=== PATIENT | male | born 1960 | race Two or more races ===

== ENCOUNTER 2024-08-01 04:18 | Inpatient (IN) | payer OTHER ==
[~2024-08-01] VITALS: Ht 167.6 cm; Wt 84.0 kg
--- NOTE | 2024-08-01 04:58 | ED.PDOC ---
History of Present Illness HPI Comments 64-year-old male who came to ER due to dizziness. Patient has a history of diabetes. States for the past 3 hours, he has been having episodes of dizziness, felt like the room was spinning. Associated with nausea, vomiting, abdominal pain, right-sided tinnitus. Patient states dizziness worsens with head movements. Chief Complaint: Dizziness Time Seen by MD: 04:58 Reviewed Notes: Nurses Notes Allergies: Coded Allergies: No Known Drug Allergy (Verified Allergy, Unknown, 08/01/24) Information Source: Patient Mode of Arrival: Wheelchair Severity: Moderate Timing: Hours Duration: Since onset Past Medical History PAST MEDICAL HISTORY: DM Surgical History: Denies all surgeries Family History Family History: Reviewed,noncontributory to illness Social History Smoker: Non-Smoker Alcohol: Denies ETOH Use Drugs: Denies Drug Use Lives In: Home Constitutional: denies: chills, diaphoresis, fatigue, fever, malaise, sweats, weakness, others EENTM: reports: ear ringing (right); denies: blurred vision, double vision, ear bleeding, ear discharge, ear drainage, ear pain, eye pain, eye redness, hearing loss, mouth pain, mouth swelling, nasal discharge, nose bleeding, nose congestion, nose pain, photophobia, tearing, throat pain, throat swelling, voice changes, others Respiratory: denies: cough, hemoptysis, orthopnea, SOB at rest, shortness of breath, SOB with excertion, stridor, wheezing, others Cardiovascular: denies: chest pain, dizzy spells, diaphoresis, Dyspnea on exertion, edema, irregular heart beat, left arm pain, lightheadedness, palpitations, PND, syncope, others Gastrointestinal: reports: abdominal pain, nausea, vomiting; denies: abdomen distended, blood streaked bowels, constipated, diarrhea, dysphagia, difficulty swallowing, hematemesis, melena, poor appetite, poor fluid intake, rectal bleeding, rectal pain, others Genitourinary: denies: burning, dysuria, flank pain, frequency, hematuria, incontinence, penile discharge, penile sore, pain, testicle pain, testicle s welling, urgency, others Neurological: reports: dizziness; denies: fainting, headache, left sided numbness, left sided weakness, numbness, paresthesia, pre-existing deficit, right sided numbness, right sided weakness, seizure, speech problems, tingling, tremors, weakness, others Musculoskeletal: denies: back pain, gout, joint pain, joint swelling, muscle pain, muscle stiffness, neck pain, others Integumetry: denies: bruises, change in color, change in hair/nails, dryness, laceration, lesions, lumps, rash, wounds, others Allergic/Immunocompromised: denies: Difficulty Healing, Frequent Infections, Hives, Itching, others Hematologic/Lymphatic: denies: anemia, blood clots, easy bleeding, easy bruising, swollen glands, others Endocrine: denies: excessive hunger, excessive sweating, excessive thirst, excessive urination, flushing, intolerance to cold, intolerance to heat, unexplained weight gain, unexplained weight loss, others Psychiatric: denies: anxiety, bipolar disorder, depression, hopeless, panic disorder, schizophrenia, sleepless, suicidal, others Physical Exam General Appearance: No Apparent Distress, Normal HEENT: Normal ENT Inspection, Pharynx Normal, TMs Normal Neck: Full Range of Motion, Non-Tender, Normal, Normal Inspection Respiratory: Chest Non-Tender, Lungs Clear, No Accessory Muscle Use, No Respiratory Distress, Normal Breath Sounds Cardiovascular: No Edema, No JVD, No Murmur, No Gallop, Normal Peripheral Pulses, Regular Rate/Rhythm Breast Exam: Deferred Gastrointestinal: No Organomegaly, Non Tender, No Pulsatile Mass, Normal Bowel Sounds, Soft Genitalia: Deferred Pelvic: Deferred Rectal: Deferred Extremities: No calf tenderness, Normal capillary refill, Normal inspection, Normal range of motion, Non-tender, No pedal edema Musculoskeletal : Apperance: Normal Neurologic: Alert, 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 Was a procedure done?: No Differential Dx Considerations may include: Anemia, electrolyte imbalance, dizziness, gastritis, vertigo X-Ray, Labs, Meds, VS Vital Signs Date Time Temp Pulse Resp B/P (MAP) Pulse Ox O2 Delivery O2 Flow Rate FiO2 08/01/24 04:48 52 08/01/24 04:47 97.3 57 16 112/61 (78) 97 97.3 Lab Test 08/01/24 05:09 5/3/25 04:45 Range/Units White Blood Count 11.8 H 4.4-10.8 10^3/uL Red Blood Count 5.11 4.5-5.90 10^6/uL Hemoglobin 15.7 13.5-17.5 g/dL Hematocrit 46.4 41.0-53.0 % Mean Corpuscular Volume 90.9 80.0-100.0 fL Mean Corpuscular Hemoglobin 30.7 28.0-32.0 pg Mean Corpuscular Hemoglobin Concent 33.8 32.0-36.0 g/dL Red Cell Distribution Width 14.7 H 11.8-14.3 % Platelet Count 294 140-450 10^3/uL Mean Platelet Volume 7.2 6.9-10.8 fL Neutrophils (%) (Auto) 74.8 37.0-80.0 % Lymphocytes (%) (Auto) 18.2 10.0-50.0 % Monocytes (%) (Auto) 5.9 0.0-12.0 % Eosinophils (%) (Auto) 0.5 0.0-7.0 % Basophils (%) (Auto) 0.6 0.0-2.0 % Neutrophils # (Auto) 8.8 H 1.6-8.6 10 ^3/uL Lymphocytes # (Auto) 2.1 0.4-5.4 10 ^3/uL Monocytes # (Auto) 0.7 0-1.3 10 ^3/uL Eosinophils # (Auto) 0.1 0-0.8 10 ^3/uL Basophils # (Auto) 0.1 0-0.2 10 ^3/uL Nucleated Red Blood Cells 0.0 % Sodium Level Pending Potassium Level Pending Chloride Level Pending Carbon Dioxide Level Pending Anion Gap Pending Blood Urea Nitrogen Pending Creatinine Pending Glomerular Filtration Rate Calc Pending BUN/Creatinine Ratio Pending Serum Glucose Pending Calcium Level Pending Troponin I High Sensitivity Pending POC Glucose 247 H 70-106 mg/dl Current Medications Medications (Trade) Dose Ordered Sig/Mehdi Route Start Time Stop Time Status Last Admin Sodium Chloride 1,000 ml @ 1,000 mls/hr Q1H ONCE IV 08/01/24 05:00 08/01/24 05:59 DC 08/01/24 05:54 Ondansetron HCl (Zofran) 4 mg ONCE ONCE IV 08/01/24 05:00 08/01/24 05:01 DC 08/01/24 05:54 Acetaminophen (Tylenol Tablet) 650 mg ONCE ONCE PO 08/01/24 05:00 08/01/24 05:01 DC 08/01/24 05:54 Time of 1ST Reevaluation: 04:55 Reevaluation 1ST: Unchanged Patient Education/Counseling: Diagnosis, Treatment Family Education/Counseling: No Family Present Departure 1 Departure Time of Disposition: 05:59 (Patient with a worsening dizziness and near- syncope. We will admit patient for further workup and expert consultation) Impression: Primary Impression: Dizziness Additional Impression: Generalized weakness Disposition: ADMITTED INPATIENT Admit to: Med Surg Condition: Serious Critical Care Note Critical Care Time?: No Stability Stability form required: No Heart Score Heart Score: Heart Score Response (Comments) Value History N/A 0 EKG N/A 0 Age N/A 0 Risk Factors N/A 0 Troponin N/A 0 Total 0 I personally scribed for LAUREN READ MD ([email or web address]) on 08/01/24 at 04:58. Electronically submitted by Michael Martini ([email or web address]). LAUREN READ MD August 01, 2024 04:58
--- NOTE | 2024-08-01 05:00 | ECG ---
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
--- NOTE | 2024-08-01 05:42 | DVH ---
CHEST RADIOGRAPH Indication: dizziness Technique: Single frontal view of the chest was obtained COMPARISON: None FINDINGS: Lines and Tubes: None Lungs: Clear Pleura: No effusion. No pneumothorax. Cardiomediastinal contours: Unremarkable Bones: Unremarkable IMPRESSION: 1. No acute disease.
[2024-08-01 05:45] LABS: Basophils # (auto) 0.1 10 ^3/uL (0-0.2); Basophils % (auto) 0.6 % (0.0-2.0); Eosinophils # (auto) 0.1 10 ^3/uL (0-0.8); Eosinophils % (auto) 0.5 % (0.0-7.0); Hematocrit 46.4 % (41.0-53.0); Hemoglobin 15.7 g/dL (13.5-17.5); Lymphocytes # (auto) 2.1 10 ^3/uL (0.4-5.4); Lymphocytes % (auto) 18.2 % (10.0-50.0); Mean Corpuscular Hemoglobin 30.7 pg (28.0-32.0); Mean Corpuscular Hgb Conc. 33.8 g/dL (32.0-36.0); Mean Corpuscular Volume 90.9 fL (80.0-100.0); Monocytes # (auto) 0.7 10 ^3/uL (0-1.3); Monocytes % (auto) 5.9 % (0.0-12.0); Neutrophils # (auto) 8.8 10 ^3/uL (1.6-8.6); Neutrophils % (auto) 74.8 % (37.0-80.0); Platelet Count (auto) 294 10^3/uL (140-450); Red Blood Cells 5.11 10^6/uL (4.5-5.90); Red Cell Distribution Width 14.7 % (11.8-14.3); White Blood Cell 11.8 10^3/uL (4.4-10.8)
--- NOTE | 2024-08-01 05:50 | DVH ---
EXAM: CT HEAD WITHOUT CONTRAST INDICATION: dizziness TECHNIQUE: CT of the head without intravenous contrast. Radiation Dose : 1. Head: CT Dose: CTDI volume is 59.69 mGy. Dose-length product is 1174.79 mGy*cm The dose indicators for CT are the volume Computed Tomography (CT) Dose Index (CTDIvol) and the Dose Length Product (DLP), and are measured in units of mGy and mGy-cm, respectively. These indicators are not patient dose, but values generated from the CT scanner acquisition factors. The report includes radiation exposure data for exposures received during this examination. COMPARISON: None FINDINGS: There is no evidence of acute intracranial hemorrhage, extra-axial collection, mass effect, midline s hift, herniation or hydrocephalus. Cortical parenchymal calcification within the medial left frontal lobe. The ventricles, sulci and cisterns are age appropriate. The powers-white differentiation is intact. Patchy periventricular and subcortical white matter hypoattenuation is nonspecific but may be related to small vessel ischemic disease. Minimal right maxillary mucosal sinus disease. The remaining visualized paranasal sinuses and mastoi d air cells are clear. The surrounding soft tissues and osseous structures are unremarkable. IMPRESSION: 1. No acute intracranial abnormality. Radiation optimization: All CT scans at this facility use at least one of these dose optimization valery hniques: automated exposure control mA and/or kV adjustment per patient size (includes targeted exam s where dose is matched to clinical indication) or iterative reconstruction.
[2024-08-01] MEDS: SODIUM CHLORIDE 0.9% 1,000 ML IV ONE (05:54)
[2024-08-01] MEDS: ACETAMINOPHEN 325 MG TAB PO ONE (05:54)
[2024-08-01] MEDS: ONDANSETRON HCL 4 MG/2 ML VIAL IV ONE (05:54)
[2024-08-01 05:57] LABS: Anion Gap 9 (5-15); Carbon Dioxide 25 mmol/L (20-31); Chloride 103 mmol/L (98-107); Potassium 4.7 mmol/L (3.5-5.1); Sodium 137 mmol/L (136-145)
[2024-08-01 05:58] LABS: Calcium 9.7 mg/dL (8.7-10.4)
[2024-08-01 06:12] LABS: Blood Urea Nitrogen 23 mg/dL (9-23); Glucose 261 mg/dL (74-106)
--- NOTE | 2024-08-01 07:13 | ECG ---
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
[2024-08-01] MEDS ORDERED: ATOR10TA52 (07:58)
[2024-08-01] MEDS ORDERED: MORPHINE SULFATE INJ 2 MG/ml SYRG IV PRN ×2 (08:00)
[2024-08-01] MEDS ORDERED: ACETAMINOPHEN 325 MG TAB PO PRN (08:00)
[2024-08-01] MEDS ORDERED: DEXTROSE (50%) 50ML SYRG IV PRN (08:00)
[2024-08-01] MEDS ORDERED: NITROGLYCERIN 0.4 MG SL TAB SL PRN (08:00)
[2024-08-01] MEDS ORDERED: HYDROcodone-ACET 5/325MG TAB PO PRN (08:00)
[2024-08-01] MEDS ORDERED: ONDANSETRON HCL 4 MG/2 ML VIAL IV PRN (08:00)
--- NOTE | 2024-08-01 08:05 | DVHHP2 ---
History of Present Illness Reason for Visit: Dizziness History of Present Illness Garrett Aguilar is a 64-year-old male with past medical history of diabetes, hyperlipidemia, and hernia repair who presents to the ED with dizziness, nausea, vomiting, and abdominal pain since 1:00 a.m. this morning. Patient reports that he also has right-sided tinnitus that has been ongoing for few years. Patient reports that the abdominal pain is 6/10 pressure-like and constant. 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 Patient reports that he is able to ambulate with a steady gait. Patient denies any chest pain, fever, chills, lightheadedness, weakness, recent travels, recent sick contacts, recent ingestion of spoiled food, shortness of breath, or diarrhea. Cardiovascular: hyperipidemia Endocrine: Diabetes Past Surgical History: Hernia Repair Family History: None Smoke: No ALCOHOL: none Drugs: None Lives: with Family Domestic Violence: Neg Review of Systems Constitutional: Yes: Other (Dizziness) ENT: Other (Right-sided tinnitus) Gastrointestinal: Nausea, Vomiting, Abdominal Pain Allergies: Coded Allergies: No Known Drug Allergy (Verified Allergy, Unknown, 08/01/24) Medications Current Medications Medications Dose Ordered Sig/Mehdi Route Start Time Stop Time Status Last Admin Dose Admin Acetaminophen/ Hydrocodone Bitart 1 tab Q4HP PRN PO 08/01/24 08:00 UNV Ondansetron HCl 4 mg Q4HP PRN IV 08/01/24 08:00 UNV Acetaminophen 650 mg Q6HP PRN PO 08/01/24 08:00 UNV Morphine Sulfate 2 mg Q4HPRN PRN IV 08/01/24 08:00 UNV Nitroglycerin 0.4 mg Q5MINP PRN SL 08/01/24 08:00 UNV Morphine Sulfate 2 mg Q30M PRN IV 08/01/24 08:00 UNV Exam Vital Signs Vital Signs Date Time Temp Pulse Resp B/P (MAP) Pulse Ox O2 Delivery O2 Flow Rate FiO2 08/01/24 06:25 57 08/01/24 06:18 98.5 18 109/64 (79) 97 98.5 08/01/24 06:00 Room Air* 0 21 General Appearance: Alert, Oriented X3, Cooperative, No acute distress HEENT: Atraumatic, PERRLA, EOMI, Mucous membr. moist/pink Respiratory: Clear to auscultation, Normal air movement Cardiovascular: Normal S1, Normal S2, No murmurs Abdominal: Normal bowel sounds, Soft, No tenderness, No hepatospenomegaly, No masses Extremities: No clubbing, No cyanosis, No edema, Normal pulses, No tenderness/swelling Skin: No significant lesion Neuro: Normal gait, Normal speech, Strength at 5/5 X4 ext, Normal tone, Sensation intact Psych/Mental Status: Mental status NL, Mood NL Labs/Xrays Labs Test 08/01/24 05:56 08/01/24 05:09 08/01/24 04:45 Range/Units Troponin I High Sensitivity < 3 L </=54 ng/L White Blood Count 11.8 H 4.4-10.8 10^3/uL Red Blood Count 5.11 4.5-5.90 10^6/uL Hemoglobin 15.7 13.5-17.5 g/dL Hematocrit 46.4 41.0-53.0 % Mean Corpuscular Volume 90.9 80.0-100.0 fL Mean Corpuscular Hemoglobin 30.7 28.0-32.0 pg Mean Corpuscular Hemoglobin Concent 33.8 32.0-36.0 g/dL Red Cell Distribution Width 14.7 H 11.8-14.3 % Platelet Count 294 140-450 10^3/uL Mean Platelet Volume 7.2 6.9-10.8 fL Neutrophils (%) (Auto) 74.8 37.0-80.0 % Lymphocytes (%) (Auto) 18.2 10.0-50.0 % Monocytes (%) (Auto) 5.9 0.0-12.0 % Eosinophils (%) (Auto) 0.5 0.0-7.0 % Basophils (%) (Auto) 0.6 0.0-2.0 % Neutrophils # (Auto) 8.8 H 1.6-8.6 10 ^3/uL Lymphocytes # (Auto) 2.1 0.4-5.4 10 ^3/uL Monocytes # (Auto) 0.7 0-1.3 10 ^3/uL Eosinophils # (Auto) 0.1 0-0.8 10 ^3/uL Basophils # (Auto) 0.1 0-0.2 10 ^3/uL Nucleated Red Blood Cells 0.0 % Sodium Level 137 136-145 mmol/L Potassium Level 4.7 3.5-5.1 mmol/L Chloride Level 103 98-107 mmol/L Carbon Dioxide Level 25 20-31 mmol/L Anion Gap 9 5-15 Blood Urea Nitrogen 23 9-23 mg/dL Creatinine 1.15 0.700-1.30 mg/dL Glomerular Filtration Rate Calc 71 >90 mL/min BUN/Creatinine Ratio 20.0 10.0-20.0 Serum Glucose 261 H 74-106 mg/dL Calcium Level 9.7 8.7-10.4 mg/dL POC Glucose 247 H 70-106 mg/dl EXAM: CT HEAD WITHOUT CONTRAST INDICATION: dizziness TECHNIQUE: CT of the head without intravenous contrast. Radiation Dose : 1. Head: CT Dose: CTDI volume is 59.69 mGy. Dose-length product is 1174.79 mGy*cm The dose indicators for CT are the volume Computed Tomography (CT) Dose Index (CTDIvol) and the Dose Length Product (DLP), and are measured in units of mGy and mGy-cm, respectively. These indicators are not patient dose, but values generated from the CT scanner acquisition factors. The report includes radiation exposure data for exposures received during this examination. COMPARISON: None FINDINGS: There is no evidence of acute intracranial hemorrhage, extra-axial collection, mass effect, midline shift, herniation or hydrocephalus. Cortical parenchymal calcification within the medial left frontal lobe. The ventricles, sulci and cisterns are age appropriate. The powers-white differentiation is intact. Patchy periventricular and subcortical white matter hypoattenuation is nonspecific but may be related to small vessel ischemic disease. Minimal right maxillary mucosal sinus disease. The remaining visualized paranasal sinuses and mastoid air cells are clear. The surrounding soft tissues and osseous structures are unremarkable. IMPRESSION: 1. No acute intracranial abnormality. CHEST RADIOGRAPH Indication: dizziness Technique: Single frontal view of the chest was obtained COMPARISON: None FINDINGS: Lines and Tubes: None Lungs: Clear Pleura: No effusion. No pneumothorax. Cardiomediastinal contours: Unremarkable Bones: Unremarkable IMPRESSION: 1. No acute disease. Assessment/Plan Assessment/Plan Assessment Autonomic imbalance Diabetes type 2 Sinus bradycardia Leukocytosis rule out gastritis versus colitis History of hyperlipidemia History of hernia repair Plan Admit to [facility] IV antibiotics-Zosyn Antipyretics Pain management Antiemetics NS1 L given ED EKG Troponin negative x2 CT head noted Chest x-ray noted UA Hemoglobin A1c ISS and Accu-Cheks Echo ordered CT abdomen and pelvis ordered Orthostatics Diet Home medications reconciled DVT prophylaxis-SCDs PUD prophylaxis-not indicated no history of GERD or GI bleed Discussed plan of care with patient and nurse Plan discussed with: Patient My Orders Orders - ROBYN LOPEZ Procedure Category Date Status Time Admit ADMIT 08/01/24 Transmitted 07:55 Allergies SANDRA 08/01/24 In Process 07:55 Code Status CODE 08/01/24 Transmitted 07:55 Hydrocodone-Acet PHA 08/01/24 Transmitted 5/325mg Tab ([place] 08:00 Ondansetron Hcl PHA 08/01/24 Transmitted (Zofran) 08:00 Complete Blood Count LAB 08/02/24 Verified 04:00 Comprehensive LAB 08/02/24 Verified Metabolic Panel 04:00 Cardiac DIET 08/01/24 Transmitted Diet-2gna,Lofat,Lochol Breakfast Echo 2d Mode Cardiac US 08/01/24 Logged DOP 07:55 Acetaminophen Tablet PHA 08/01/24 Transmitted (Tylenol Tablet) 08:00 Morphine Sulfate PHA 08/01/24 Transmitted Injection 08:00 Sequential SANDRA 08/01/24 In Process Compression Device Nitroglycerin PHA 08/01/24 Transmitted Sublingual (Ntrostat 08:00 Morphine Sulfate PHA 08/01/24 Transmitted Injection 08:00 Stat Ekg For Chest SANDRA 08/01/24 In Process Pain 07:55 Notify Of Changes SANDRA 08/01/24 In Process From Base 07:55 Hr Business Partner Consultant For SANDRA 08/01/24 In Process 24 Hours 07:55 Emergency Dysrhythmia SANDRA 08/01/24 In Process Protocol 07:55 Rhythm Strips Once SANDRA 08/01/24 In Process Every Shift 07:55 Oxygen By Nasal RT 08/01/24 Transmitted Cannula 07:55 Glucose Blood PHA 08/01/24 Transmitted (Accu-Chek Comfort 11:30 Mild Sliding Scale PHA 08/01/24 Transmitted 11:30 Dextrose 50% Syringe PHA 08/01/24 Transmitted 08:00 Hemoglobin A1c LAB 08/01/24 Transmitted 07:55 Ct Ab Pel Wo Con-No CT 08/01/24 Logged Oral Or Iv 07:55 Date of Service: August 01, 2024 Billing Provider: ROBYN LOPEZ Common Visit Codes: [id number] INP/OBS CARE (HIGH) ROBYN LOPEZ [facility] August 01, 2024 08:05
[2024-08-01] MEDS ORDERED: PIPERACILLIN-TAZOB 3.375GM 100 ML IV SCH ×2 (08:15→14:00)
--- NOTE | 2024-08-01 08:41 | DVH ---
CLINICAL INFORMATION: Abdominal pain. TECHNIQUE: Axial CT images of the abdomen and pelvis were obtained without IV contrast. Coronal and s agittal reformatted images were obtained, reviewed, and stored. Evaluation of the parenchymal organs is limited without IV contrast. Evaluation of the bowel and mesentery is limited without oral contras t. All CT scans at this medical facility are performed using dose modulation techniques as appropriat e to a performed exam including the following: Automated exposure control was utilized; adjustment of the MA and/or KV according to patient size; and use of iterative reconstruction technique. CTDIvol = 16.03 mGy DLP = 812.79 mGy-cm COMPARISON: None FINDINGS: Lung bases: Atelectasis in the lung bases. Liver: Fluid density lesion in the left hepatic lobe measuring up to 1.3 cm, likely a cyst. Biliary: Multiple calcified gallstones in the gallbladder. Spleen: Unremarkable. Pancreas: Grossly unremarkable in its noncontrast enhanced appearance. Adrenal glands: Unremarkable. No mass. Kidneys: No hydronephrosis. No renal or ureteral calculi. Subtle subcentimeter low-attenuation lesion s in the right kidney, possibly small cysts, but too small to characterize, and not well characterize d on noncontrast enhanced exam. Aorta/Vascular: Scattered atherosclerotic calcification. No abdominal aortic aneurysm. Retroperitoneum: No mass or lymphadenopathy. Bowel/mesentery: No small bowel obstruction. No free air or free fluid. Appendix is visualized and ap pears unremarkable. Scattered colonic diverticula without adjacent inflammatory changes to suggest d iverticulitis. Focal segmental luminal narrowing and associated wall thickening at the sigmoid colon near the rectosigmoid junction extending up to 3.6 cm in proximal to distal dimension. There is also wall thickening more proximally in the sigmoid colon, which may be due to chronic diverticular diseas e. Pelvic organs: Enlarged prostate with impression on the bladder base. Bladder: Unremarkable. No mass. Abdominal wall: Small fat containing umbilical hernia. Bones: No acute fracture or suspicious intraosseous lesion. IMPRESSION: 1. Scattered colonic diverticula without adjacent inflammatory changes to suggest diverticulitis. 2. Focal area of luminal narrowing and wall thickening in the distal sigmoid colon near the rectosigm oid junction, may be due to peristalsis, however stricture or malignancy can not be excluded. Correla te with clinical findings. GI consultation could be considered if clinically indicated. Wall thickeni ng more proximally in the sigmoid colon may be due to chronic diverticular disease. 3. Cholelithiasis. 4. Small fat containing umbilical hernia. 5. Additional findings as described above.
[2024-08-01 08:56] LABS: Urine Bacteria None Seen /hpf (None Seen)
[2024-08-01 09:10] LABS: Urine Blood Negative /uL (Negative); Urine Clarity Clear (Clear); Urine Color Yellow (Yellow); Urine Protein, UAD Negative (Negative); Urine Specific Gravity 1.034 (1.001-1.035); Urine Squamous Epithelial Cell None Seen /hpf (<5); Urine Urobilinogen Normal (Negative); Urine WBC 1 /HPF (0-3); Urine pH 5.5 (5.0-9.0)
[2024-08-01] MEDS: PIPERACILLIN-TAZOB 3.375GM 100 ML IV ONE (09:39)
[2024-08-01 10:19] VITALS: BP 122/72; PULSE 56; RESP 18; TEMP 97.5; O2SAT 96
[2024-08-01] MEDS: InsuLIN REG 1unit/0.01ml Soln (100units/ml) SC SCH (11:24)
[2024-08-01] MEDS: ACCU-CHEK COMFORT CURVE STRIP VI SCH (11:26)
[2024-08-01] MEDS ORDERED: PIOG1TAB36 PO (12:49)
[2024-08-01] MEDS ORDERED: OMEP-337 PO (12:49)
[2024-08-01] MEDS ORDERED: SEMA2INJ3 SC (12:49)
[2024-08-01] MEDS ORDERED: METF-372 PO (12:49)
[2024-08-01] MEDS ORDERED: NAP500T PO (12:49)
[2024-08-01] MEDS ORDERED: ATOR10TA52 PO (12:49)
[2024-08-01] MEDS ORDERED: METH-1181 PO (12:49)
[2024-08-01] MEDS ORDERED: ATORVASTATIN 20 MG TAB PO SCH (22:00)
[2024-08-03 11:17] LABS: Hepatitis B Surface Antigen Negative (Negative)
[2024-08-03 11:37] LABS: Hepatitis C Antibody Negative (Negative)
== END 2024-08-01 14:26 | disposition left against medical advice (07) | DRG 74 ==
LOC: ER 04:18 → OVERFLOW 07:58
DX: G90.89 Other disorders of autonomic nervous system (principal); E11.9 Type 2 diabetes mellitus without complications; K29.70 Gastritis, unspecified, without bleeding; R00.1 Bradycardia, unspecified; D72.829 Elevated white blood cell count, unspecified; K52.9 Noninfective gastroenteritis and colitis, unspecified; E78.5 Hyperlipidemia, unspecified; Z53.29 Procedure and treatment not carried out because of patient's decision for other reasons
CPT/HCPCS: 36415; 70450; 71045; 74176; 80048; 81001; 82962; 83036; 84484; 85025; 86803; 87340; 93005; 96361; 96374; G0378; J1815; J2405; J2543